=== PATIENT | female | born 1950 | race American Indian/Alaskan Native ===

== ENCOUNTER 2018-06-23 15:14 | Outpatient (CLI) | payer MEDICARE | END 2018-06-23 15:15 | disposition home or self-care (01) | LOC: LABHHL 15:14 | PROVIDERS: ATTEND Specialist | DX: N60.01 Solitary cyst of right breast (principal) | CPT/HCPCS: 88112 ==

== ENCOUNTER 2019-07-19 12:01 | Outpatient (CLI) | payer MEDICARE ==
--- NOTE | 2019-07-24 15:57 | Magnetic Resonance Report ---
BILATERAL BREAST MR WITHOUT AND WITH GADOLINIUM INDICATION: History of atypia and increased risk based on family history. Status post bilateral mercedes gn biopsies. COMPARISONS: 12/22/2018 screening mammogram TECHNIQUE: Axial 1.0 mm T1 without, axial high-resolution 2.0 mm T2 and axial 1.0 mm dynamic vibrant high-resolution postcontrast T1 fat saturation sequences on a 1.5 Lisa magnet. The examination was p erformed with an 8-channel dedicated [place] breast coil. Post-processing with CAD and subtraction was performed on an [employer] workstation. 19.0 cc of MultiHance was injected without incident for the c ontrast portion of the exam. Consent was obtained prior to the administration of the contrast. FINDINGS: RIGHT BREAST: Minimal background parenchymal enhancement. No mass or suspicious enhancement. No suspi cious lymph nodes. LEFT BREAST: Minimal background parenchymal enhancement. No mass or suspicious enhancement. No suspic ious lymph nodes. IMPRESSION: Negative study. Recommend routine mammographic screening. BI-RADS Category 1: Negative Signer Name: Alexi Perry MD Signed: 07/24/2019 3:53 PM Workstation Name: [id number]
== END 2019-07-19 12:02 | disposition home or self-care (01) ==
LOC: SPVIMAG 12:01
PROVIDERS: ATTEND Surgery
DX: N60.81 Other benign mammary dysplasias of right breast (principal); N60.21 Fibroadenosis of right breast; Z80.3 Family history of malignant neoplasm of breast
CPT/HCPCS: A9577; C8908; 77049

== ENCOUNTER 2020-07-17 13:29 | Outpatient (CLI) | payer MEDICARE ==
--- NOTE | 2020-07-17 16:46 | Magnetic Resonance Report ---
Bilateral breast MRI with and without contrast. History: Family history of breast cancer, personal history of left breast benign biopsy, recent hist ory of probably benign left breast calcifications Procedure: Axial T1 and T2-weighted fat-sat images were obtained precontrast. 18 cc ProHance was inj ected intravenously and serial axial T1-weighted images with fat saturation were obtained postcontras t. 3-D MIP projections, Kinetic analysis and subtraction imaging was utilized to evaluate. A Nephera d 8 channel breast coil was utilized for image acquisition. Comparison: Bilateral mammogram 05/09/2020, left diagnostic mammogram 05/22/2020 Findings: Background level of enhancement is [id number]. No suspicious axillary or clavicular nodes are identified. No abnormal bone marrow signal is seen. No significant chest wall enhancement is noted. Right breast: Diffuse benign-appearing stippled enhancement is seen. No suspicious lesions are noted. Left breast: Moderate diffuse benign-appearing stippled enhancement is seen. No suspicious lesions ar e noted. Impression: No suspicious lesions are seen BIRADS: 2: Benign Signer Name: Henok Love MD Signed: 07/17/2020 4:42 PM Workstation Name: [id number]
== END 2020-07-17 13:30 | disposition home or self-care (01) ==
LOC: SPVIMAG 13:29
PROVIDERS: ATTEND Surgery
DX: D24.1 Benign neoplasm of right breast (principal)
CPT/HCPCS: A9577; C8908; 77049

== ENCOUNTER 2020-11-27 09:14 | Outpatient (CLI) | payer MEDICARE ==
--- NOTE | 2020-11-27 10:21 | Mammography Report ---
DIGITAL DIAGNOSTIC MAMMOGRAM WITH CAD CONVENTIONAL, 11/27/2020 CLINICAL INFORMATION / INDICATION: Patient presents for six-month follow-up of probably benign calcif ications in the left breast. ABNORMAL MAMMO R92.8 TECHNIQUE: Digital left mammographic imaging was performed. Magnification views were obtained. This examination was interpreted with the benefit of Computer-aided Detection analysis. COMPARISON: Prior mammograms 05/22/2020 and 05/09/2020 FINDINGS: Breast Density: The breasts are heterogeneously dense, which may obscure small masses. There are stable loosely grouped calcifications in the upper outer quadrant of the left breast. These again demonstrate a benign, coarse morphology. There is a stable biopsy clip in the left breast. IMPRESSION: 1. Left breast calcifications are stable from prior examination and benign in morphology. No suspicio us microcalcifications identified. Recommend return to routine screening mammogram. Follow up recommendation: Back to schedule. BI-RADS Category 2: Benign. A "normal" or negative report should not discourage follow up or biopsy of a clinically significant f inding. A written summary of these findings will be mailed to the patient. The patient will be entered into a mammography reporting system which will generate a reminder letter for the patient's next appointmen t at the appropriate interval. According to the [employer], yearly mammograms are recommended starting at age 40 and continuing as long as a woman is in good health. Breast MRI is recommended for women with an michael roximately 20-25% or greater lifetime risk of breast cancer, including women with a strong family his tory of breast or ovarian cancer and women who have been treated for Hodgkin's disease. Signer Name: Char Wang MD Signed: 11/27/2020 10:16 AM Workstation Name: [id number]
--- NOTE | 2020-11-27 14:21 | XRay Report ---
CHEST 2 VIEWS INDICATION / CLINICAL INFORMATION: CHEST PAIN. FINDINGS: SUPPORT DEVICES: None. HEART / MEDIASTINUM: No significant abnormality. LUNGS / PLEURA: No significant pulmonary or pleural abnormality. No pneumothorax. ADDITIONAL FINDINGS: Multiple surgical clips project in the region of the lower mediastinum. IMPRESSION: 1. No acute findings. Signer Name: Jack Cutler MD Signed: 11/27/2020 2:16 PM Workstation Name: [id number]
== END 2020-11-27 09:15 | disposition home or self-care (01) ==
LOC: SPVWC 09:14
PROVIDERS: ATTEND Surgery
DX: R92.1 Mammographic calcification found on diagnostic imaging of breast (principal); R07.9 Chest pain, unspecified
CPT/HCPCS: 71046

== ENCOUNTER 2020-12-26 08:54 | Outpatient (CLI) | payer MEDICARE ==
--- NOTE | 2020-12-26 10:39 | Mammography Report ---
RIGHT DIGITAL DIAGNOSTIC MAMMOGRAM WITH CAD CONVENTIONAL, 12/26/2020 RIGHT LIMITED BREAST ULTRASOUND CLINICAL INFORMATION / INDICATION: Patient presents for evaluation of an area of focal pain in the ri ght breast. MASTODYNIA TECHNIQUE: Digital right mammographic imaging was performed. Limited ultrasound was performed. This e xamination was interpreted with the benefit of Computer-Aided Detection (CAD) analysis. COMPARISON: Prior mammograms 05/09/2020 and 12/22/2018 FINDINGS: Breast Density: The breasts are heterogeneously dense, which may obscure small masses. MAMMOGRAPHIC FINDINGS: No dominant mass, suspicious calcifications, or architectural distortion in th e right breast. There is stable benign postsurgical change in the right breast, a stable biopsy clip in the upper outer quadrant of the right breast, and stable benign-appearing calcifications in the ri ght breast. There has been no significant change compared with the prior examinations. There is no ma mmographic abnormality to account for right breast pain. ULTRASOUND FINDINGS: Targeted ultrasound evaluation was performed of the area of interest. Targeted ultrasound of the area of focal pain in the 9 through 12:00 position of the right breast reveals nor mal fibroglandular tissue. No suspicious cystic or solid lesion identified. IMPRESSION: 1. No mammographic or sonographic abnormality to account for right breast pain, therefore clinical co rrelation is recommended. Follow up recommendation: Back to schedule. BI-RADS Category 2: Benign. A "normal" or negative report should not discourage follow up or biopsy of a clinically significant f inding. A written summary of these findings will be mailed to the patient. The patient will be entered into a mammography reporting system which will generate a reminder letter for the patient's next appointmen t at the appropriate interval. According to the [employer], yearly mammograms are recommended starting at age 40 and continuing as long as a woman is in good health. Breast MRI is recommended for women with an michael roximately 20-25% or greater lifetime risk of breast cancer, including women with a strong family his tory of breast or ovarian cancer and women who have been treated for Hodgkin's disease. Signer Name: Char Wang MD Signed: 12/26/2020 10:34 AM Workstation Name: [id number]
== END 2020-12-26 08:55 | disposition home or self-care (01) ==
LOC: SPVWC 08:54
PROVIDERS: ATTEND Surgery
DX: R92.1 Mammographic calcification found on diagnostic imaging of breast (principal)

== ENCOUNTER 2021-05-12 09:06 | Outpatient (CLI) | payer MEDICARE ==
--- NOTE | 2021-05-12 14:11 | Mammography Report ---
DIGITAL SCREENING MAMMOGRAM WITH CAD, 05/12/2021 CLINICAL INFORMATION / INDICATION: Routine screening mammography. SCREENING MAMMO Z12.31 TECHNIQUE: Digital bilateral 2D mammography was obtained in the craniocaudal and mediolateral obliqu e projections. This examination was interpreted with the benefit of Computer-Aided Detection analysis . COMPARISON: 12/10/2016 through 12/26/2020. FINDINGS: Breast Density: The breasts are heterogeneously dense, which may obscure small masses. No dominant mass, suspicious calcifications, or architectural distortion in either breast. Bilateral breast calcifications are stable. There are bilateral biopsy clips. Right breast scarring h as not changed. No new abnormality is seen. IMPRESSION: No mammographic evidence of malignancy. Follow up recommendation: Routine yearly BI-RADS Category 2: Benign. A "normal" or negative report should not discourage follow up or biopsy of a clinically significant f inding. A written summary of these findings will be mailed to the patient. The patient will be entered into a mammography reporting system which will generate a reminder letter for the patient's next appointmen t at the appropriate interval. The [employer] recommends yearly mammograms starting at age 40 and continuing as l tg as a woman is in good health. Breast MRI is recommended for women with an approximate 20-25% or greater lifetime risk of breast cancer, including women with a strong family history of breast or ova cole cancer or who have been treated for Hodgkin's disease. Signer Name: Isma Ferreira MD Signed: 05/12/2021 2:06 PM Workstation Name: [id number]
== END 2021-05-12 09:07 | disposition home or self-care (01) ==
LOC: SPVWC 09:06
PROVIDERS: ATTEND Surgery
DX: Z12.31 Encounter for screening mammogram for malignant neoplasm of breast (principal)
CPT/HCPCS: 77067

== ENCOUNTER 2021-10-27 08:07 | Outpatient (CLI) | payer MEDICARE ==
--- NOTE | 2021-10-27 09:30 | Mammography Report ---
DIGITAL DIAGNOSTIC MAMMOGRAM WITH CAD CONVENTIONAL, 10/27/2021 CLINICAL INFORMATION / INDICATION: Patient presents for evaluation of diffuse bilateral breast pain. TECHNIQUE: Digital bilateral mammographic imaging was performed. This examination was interpreted with the benefit of Computer-aided Detection analysis. COMPARISON: Prior mammograms 05/12/2021, 12/26/2020, 11/27/2020, and 05/09/2020 FINDINGS: Breast Density: The breasts are heterogeneously dense, which may obscure small masses. No dominant mass, suspicious calcifications or architectural distortion in either breast. There is stable benign postsurgical change seen in the right breast, stable benign-appearing calcific ations with scattered distribution seen in both breasts, and stable biopsy clips in both breasts. The re has been no significant change compared with the prior examinations. IMPRESSION: 1. There is no mammographic abnormality to account for diffuse bilateral breast pain, therefore clini katya correlation is recommended. Follow up recommendation: Routine yearly BI-RADS Category 2: BENIGN. A "normal" or negative report should not discourage follow up or biopsy of a clinically significant f inding. A written summary of these findings will be mailed to the patient. The patient will be entered into a mammography reporting system which will generate a reminder letter for the patient's next appointmen t at the appropriate interval. According to the [employer], yearly mammograms are recommended starting at age 40 and continuing as long as a woman is in good health. Breast MRI is recommended for women with an michael roximately 20-25% or greater lifetime risk of breast cancer, including women with a strong family his tory of breast or ovarian cancer and women who have been treated for Hodgkin's disease. Signer Name: Char Wang MD Signed: 10/27/2021 9:25 AM Workstation Name: [id number]
--- NOTE | 2021-10-27 09:30 | Mammography Report ---
DEXA BONE DENSITY SCAN INDICATION / CLINICAL INFORMATION: MENOPAUSAL SYNDROME. 71 years Female COMPARISON: None available. LUMBAR SPINE (L1-L4): - Bone mineral density (BMD) = 1.128 g/cm2. - T-score = 0.7 Change (%) since most recent prior (if available): 2.2% increase FEMORAL NECKS: - Neck mean Bone mineral density (BMD) = 0.807 g/cm2. - T-score = -0.4 Change (%) since most recent prior (if available): 7.9% decrease IMPRESSION: 1. WHO Classification: Normal bone density. Fracture Risk: Not Increased. 2. 10-Year Fracture Risk (FRAX) = Major Osteoporotic Not reported.% / Hip: Not reported.%. BMD Reporting Guidelines (ISCD, 2015) BMD Reporting in Postmenopausal Women and in Men Age 50 and Older * T-scores are preferred. * The WHO densitometric classification is applicable. BMD Reporting in Females Prior to Menopause and in Males Younger Than Age 50 * Z-scores, not T-scores, are preferred. This is particularly important in children. * A Z-score of -2.0 or lower is defined as below the expected range for age, and a Z-score above -2. 0 is within the expected range for age. * Osteoporosis cannot be diagnosed in men under age 50 on the basis of BMD alone. * The WHO diagnostic criteria may be applied to women in the menopausal transition. http://www.iscd.org/official-positions/7824-tjjl-uxqoqisi-positions-adult/ Signer Name: Raul Schaeffer MD Signed: 10/27/2021 9:25 AM Workstation Name: [email or web address]
== END 2021-10-27 08:08 | disposition home or self-care (01) ==
LOC: MAMMO 08:07
PROVIDERS: ATTEND Obstetrics & Gynecology
DX: R92.1 Mammographic calcification found on diagnostic imaging of breast (principal); N64.4 Mastodynia; Z78.0 Asymptomatic menopausal state
CPT/HCPCS: 77066; 77080

== ENCOUNTER 2021-11-10 08:08 | Outpatient (CLI) | payer MEDICARE ==
--- NOTE | 2021-11-10 09:53 | Ultrasound Report ---
ULTRASOUND BREAST BILATERAL LIMITED, 11/10/2021 CLINICAL INFORMATION / INDICATION: Bilateral axillary pain. TECHNIQUE: Targeted ultrasound evaluation was performed of the area of interest. COMPARISON: Recent mammogram 10/27/2021 FINDINGS: Left axilla: A single morphologically normal-appearing lymph node is identified in the left axilla. N o enlarged or abnormal lymph nodes are identified in area of axillary pain. Right axilla: There is one enlarged lymph node in the right axilla measuring 1.9 x 1.1 cm. A normal f atty hilum is not visible. There is an additional similar, but smaller lymph node in the right axilla measuring 1.1 x 0.7 cm. IMPRESSION: 2 abnormal appearing right axillary lymph nodes are present. Further evaluation with ches t CT, with IV contrast if possible, is recommended to evaluate the remainder of the chest for any add itional sites of adenopathy. Additionally, right axillary node biopsy may be indicated based on chest CT findings. Follow up recommendation: Biopsy. BI-RADS Category 4: SUSPICIOUS FOR MALIGNANCY. A normal or "negative" report should not preclude biopsy or follow-up of a clinically suspicious find ing. Signer Name: Tamra Hughes MD Signed: 11/10/2021 9:49 AM Workstation Name: [id number]
== END 2021-11-10 08:09 | disposition home or self-care (01) ==
LOC: US 08:08
PROVIDERS: ATTEND Obstetrics & Gynecology
DX: N64.4 Mastodynia (principal); M79.629 Pain in unspecified upper arm; R59.0 Localized enlarged lymph nodes